=== PATIENT | female | born 1940 | race Two or more races ===

== ENCOUNTER 2017-02-27 09:02 | Outpatient (CLI) | payer OTHER ==
[~2017-02-27 09:02] MED LIST: ALEVE220 MG; ASA-EC81 MG; CALTRATE 600600 MG; CARDURA1 MG; CATAFLAM50 MG PO; NEURONTIN300 MG PO; VERAPAMIL ER100 MG
== END 2017-02-27 09:10 | disposition home or self-care (01) ==
LOC: LAB 09:02
DX: C90.01 Multiple myeloma in remission (principal); D51.0 Vitamin B12 deficiency anemia due to intrinsic factor deficiency; D51.1 Vitamin B12 deficiency anemia due to selective vitamin B12 malabsorption with proteinuria; D63.1 Anemia in chronic kidney disease; N18.3 Chronic kidney disease, stage 3 (moderate); D51.3 Other dietary vitamin B12 deficiency anemia; E08.65 Diabetes mellitus due to underlying condition with hyperglycemia; E08.21 Diabetes mellitus due to underlying condition with diabetic nephropathy; K31.83 Achlorhydria; I73.89 Other specified peripheral vascular diseases; I10 Essential (primary) hypertension; M1A.00X0 Idiopathic chronic gout, unspecified site, without tophus (tophi)

== ENCOUNTER → 2017-04-12 09:20 | Outpatient (CLI) | payer OTHER | END | disposition home or self-care (01) | LOC: LAB 09:20 | DX: C90.01 Multiple myeloma in remission (principal); N18.3 Chronic kidney disease, stage 3 (moderate); D51.0 Vitamin B12 deficiency anemia due to intrinsic factor deficiency; D51.1 Vitamin B12 deficiency anemia due to selective vitamin B12 malabsorption with proteinuria; D63.1 Anemia in chronic kidney disease; D51.3 Other dietary vitamin B12 deficiency anemia; E08.65 Diabetes mellitus due to underlying condition with hyperglycemia; E08.21 Diabetes mellitus due to underlying condition with diabetic nephropathy; I10 Essential (primary) hypertension; I73.89 Other specified peripheral vascular diseases; K31.83 Achlorhydria; M1A.00X0 Idiopathic chronic gout, unspecified site, without tophus (tophi) ==

== ENCOUNTER 2017-07-12 07:10 | Outpatient (CLI) | payer OTHER | END 2017-07-12 07:15 | disposition home or self-care (01) | LOC: LAB 07:10 | DX: C90.01 Multiple myeloma in remission (principal); D51.0 Vitamin B12 deficiency anemia due to intrinsic factor deficiency; D51.1 Vitamin B12 deficiency anemia due to selective vitamin B12 malabsorption with proteinuria; D63.1 Anemia in chronic kidney disease; N18.3 Chronic kidney disease, stage 3 (moderate); D51.3 Other dietary vitamin B12 deficiency anemia; E08.65 Diabetes mellitus due to underlying condition with hyperglycemia; E08.21 Diabetes mellitus due to underlying condition with diabetic nephropathy; K31.89 Other diseases of stomach and duodenum; I73.9 Peripheral vascular disease, unspecified; I10 Essential (primary) hypertension; M1A.00X0 Idiopathic chronic gout, unspecified site, without tophus (tophi) ==

== ENCOUNTER 2017-12-09 08:36 | Outpatient (CLI) | payer OTHER | END 2017-12-09 08:40 | disposition home or self-care (01) | LOC: SONOGRAMA 08:36 | DX: R10.84 Generalized abdominal pain (principal) ==

== ENCOUNTER 2018-02-26 11:28 | Outpatient (CLI) | payer OTHER | END 2018-02-26 11:43 | disposition home or self-care (01) | LOC: RAD 501 11:28 | DX: N20.0 Calculus of kidney (principal) ==

== ENCOUNTER 2018-02-28 07:05 | Outpatient (CLI) | payer OTHER | END 2018-02-28 07:08 | disposition home or self-care (01) | LOC: TOM 07:05 | DX: N20.1 Calculus of ureter (principal) ==

== ENCOUNTER 2018-04-21 16:04 | Emergency (ER) | payer OTHER ==
[~2018-04-21] VITALS: Ht 162.6 cm; Wt 64.4 kg
== END 2018-04-21 21:38 | disposition home or self-care (01) ==
LOC: ER 16:04
DX: S80.01XA Contusion of right knee, initial encounter (principal); M12.561 Traumatic arthropathy, right knee; W18.09XA Striking against other object with subsequent fall, initial encounter; Y93.89 Activity, other specified; Y92.018 Other place in single-family (private) house as the place of occurrence of the external cause; Y99.8 Other external cause status

== ENCOUNTER 2018-08-01 13:07 | Outpatient (CLI) | payer OTHER | END 2018-08-01 13:30 | disposition home or self-care (01) | LOC: NUCLEAR 13:07 | DX: I73.9 Peripheral vascular disease, unspecified (principal) ==

== ENCOUNTER 2019-02-09 09:36 | Emergency (ER) | payer OTHER ==
[~2019-02-09] VITALS: Ht 157.5 cm; Wt 62.6 kg
[2019-02-09] MEDS ORDERED: ZESTRIL20 MG (09:58)
[2019-02-09] MEDS ORDERED: CARVEDILOL6.25 MG (09:58)
[2019-02-09] MEDS ORDERED: PLAVIX75 MG (09:59)
[2019-02-09] MEDS ORDERED: DIALYVITE 3,001 EACH (09:59)
[2019-02-09] MEDS ORDERED: CILOSTAZOL100 MG (10:00)
[2019-02-09] MEDS ORDERED: TANDEM PLUS CA1 EACH (10:00)
[2019-02-09] MEDS ORDERED: NORFLEX100MG PO (12:40)
[2019-02-09] MEDS ORDERED: ADVIL LIQUI-GE200 MG PO (12:40)
== END 2019-02-09 12:46 | disposition home or self-care (01) ==
LOC: ER 09:36
DX: M54.2 Cervicalgia (principal); M62.838 Other muscle spasm

== ENCOUNTER → 2019-02-23 09:06 | Outpatient (CLI) | payer OTHER ==
[~2019-02-23 09:06] MED LIST changes: +ADVIL LIQUI-GE200 MG PO; +CARVEDILOL6.25 MG; +CILOSTAZOL100 MG; +DIALYVITE 3,001 EACH; +NORFLEX100MG PO; +PLAVIX75 MG; +TANDEM PLUS CA1 EACH; +ZESTRIL20 MG
== END | disposition home or self-care (01) ==
LOC: LAB 09:06
DX: C90.01 Multiple myeloma in remission (principal); D50.8 Other iron deficiency anemias; D51.1 Vitamin B12 deficiency anemia due to selective vitamin B12 malabsorption with proteinuria; D63.1 Anemia in chronic kidney disease; N18.3 Chronic kidney disease, stage 3 (moderate); D51.3 Other dietary vitamin B12 deficiency anemia; E08.65 Diabetes mellitus due to underlying condition with hyperglycemia; E08.21 Diabetes mellitus due to underlying condition with diabetic nephropathy; K31.83 Achlorhydria; M75.101 Unspecified rotator cuff tear or rupture of right shoulder, not specified as traumatic

== ENCOUNTER 2019-03-05 08:44 | Outpatient (CLI) | payer OTHER | END 2019-03-05 08:49 | disposition home or self-care (01) | LOC: LAB 08:44 | DX: Z12.11 Encounter for screening for malignant neoplasm of colon (principal); D64.89 Other specified anemias ==

== ENCOUNTER 2019-03-05 10:50 | Outpatient (CLI) | payer OTHER | END 2019-03-05 10:56 | disposition home or self-care (01) | LOC: SONOGRAMA 10:50 | DX: C90.01 Multiple myeloma in remission (principal); D51.0 Vitamin B12 deficiency anemia due to intrinsic factor deficiency; D51.1 Vitamin B12 deficiency anemia due to selective vitamin B12 malabsorption with proteinuria; D63.1 Anemia in chronic kidney disease; N18.3 Chronic kidney disease, stage 3 (moderate); D51.3 Other dietary vitamin B12 deficiency anemia; E08.65 Diabetes mellitus due to underlying condition with hyperglycemia; E08.21 Diabetes mellitus due to underlying condition with diabetic nephropathy; K31.83 Achlorhydria; I73.9 Peripheral vascular disease, unspecified; I10 Essential (primary) hypertension; M75.101 Unspecified rotator cuff tear or rupture of right shoulder, not specified as traumatic ==

== ENCOUNTER 2019-03-15 13:18 | Emergency (ER) | payer OTHER ==
[~2019-03-15] VITALS: Ht 162.6 cm; Wt 59.0 kg
[2019-03-15] MEDS ORDERED: REVLIMID10 MG PO (13:59)
== END 2019-03-15 16:10 | disposition home or self-care (01) ==
LOC: ER 13:18
DX: R55 Syncope and collapse (principal); D64.9 Anemia, unspecified

== ENCOUNTER 2019-06-03 10:28 | Outpatient (CLI) | payer OTHER ==
[~2019-06-03 10:28] MED LIST changes: +REVLIMID10 MG PO
== END 2019-06-03 10:44 | disposition home or self-care (01) ==
LOC: TOM 10:28
DX: C90.01 Multiple myeloma in remission (principal); D51.0 Vitamin B12 deficiency anemia due to intrinsic factor deficiency; D51.1 Vitamin B12 deficiency anemia due to selective vitamin B12 malabsorption with proteinuria; D63.1 Anemia in chronic kidney disease; N18.3 Chronic kidney disease, stage 3 (moderate); D51.3 Other dietary vitamin B12 deficiency anemia; E08.65 Diabetes mellitus due to underlying condition with hyperglycemia; E08.21 Diabetes mellitus due to underlying condition with diabetic nephropathy; K31.83 Achlorhydria; I73.89 Other specified peripheral vascular diseases; M75.101 Unspecified rotator cuff tear or rupture of right shoulder, not specified as traumatic

== ENCOUNTER 2019-07-12 19:15 | Emergency (ER) | payer OTHER ==
[~2019-07-12] VITALS: Ht 165.1 cm; Wt 68.0 kg
== END 2019-07-13 13:23 | disposition home or self-care (01) ==
LOC: ER 19:15
DX: R55 Syncope and collapse (principal)

== ENCOUNTER 2020-06-02 07:15 | Outpatient (CLI) | payer OTHER | END 2020-06-02 07:17 | disposition home or self-care (01) | LOC: NUCLEAR 07:15 | PROVIDERS: ATTEND General Practice | DX: R60.0 Localized edema (principal) ==

== ENCOUNTER 2020-06-03 13:34 | Outpatient (CLI) | payer OTHER | END 2020-06-03 13:37 | disposition home or self-care (01) | LOC: NUCLEAR 13:34 | PROVIDERS: ATTEND General Practice | DX: R22.43 Localized swelling, mass and lump, lower limb, bilateral (principal); I73.9 Peripheral vascular disease, unspecified ==

== ENCOUNTER → 2020-11-02 | Outpatient (CLI) | payer OTHER | END | disposition home or self-care (01) | LOC: LAB 09:48 | PROVIDERS: ATTEND Internal Medicine Hematology & Oncology | DX: D50.8 Other iron deficiency anemias (principal); R79.89 Other specified abnormal findings of blood chemistry; I10 Essential (primary) hypertension; R74.02 Elevation of levels of lactic acid dehydrogenase [LDH]; K76.89 Other specified diseases of liver; D51.8 Other vitamin B12 deficiency anemias; D47.2 Monoclonal gammopathy; C90.00 Multiple myeloma not having achieved remission; D51.0 Vitamin B12 deficiency anemia due to intrinsic factor deficiency; D51.1 Vitamin B12 deficiency anemia due to selective vitamin B12 malabsorption with proteinuria; D63.1 Anemia in chronic kidney disease; D51.3 Other dietary vitamin B12 deficiency anemia; I67.89 Other cerebrovascular disease; E08.65 Diabetes mellitus due to underlying condition with hyperglycemia; E08.21 Diabetes mellitus due to underlying condition with diabetic nephropathy; K31.83 Achlorhydria; I73.89 Other specified peripheral vascular diseases; M75.101 Unspecified rotator cuff tear or rupture of right shoulder, not specified as traumatic; E78.2 Mixed hyperlipidemia; E03.8 Other specified hypothyroidism; D64.89 Other specified anemias ==

== ENCOUNTER 2021-01-08 11:24 | Outpatient (CLI) | payer OTHER | END 2021-01-08 15:00 | disposition home or self-care (01) | LOC: LAB 11:24 | PROVIDERS: ATTEND Internal Medicine Hematology & Oncology | DX: D50.8 Other iron deficiency anemias (principal); R79.89 Other specified abnormal findings of blood chemistry; I10 Essential (primary) hypertension; R74.02 Elevation of levels of lactic acid dehydrogenase [LDH]; K76.89 Other specified diseases of liver; D47.2 Monoclonal gammopathy; C90.00 Multiple myeloma not having achieved remission; D51.0 Vitamin B12 deficiency anemia due to intrinsic factor deficiency; D51.1 Vitamin B12 deficiency anemia due to selective vitamin B12 malabsorption with proteinuria; D63.1 Anemia in chronic kidney disease; D51.3 Other dietary vitamin B12 deficiency anemia; I67.89 Other cerebrovascular disease; E08.65 Diabetes mellitus due to underlying condition with hyperglycemia; E08.21 Diabetes mellitus due to underlying condition with diabetic nephropathy; K31.83 Achlorhydria; I73.89 Other specified peripheral vascular diseases; M75.101 Unspecified rotator cuff tear or rupture of right shoulder, not specified as traumatic ==

== ENCOUNTER 2022-09-26 07:22 | Outpatient (CLI) | payer OTHER | END 2022-09-26 07:23 | disposition home or self-care (01) | LOC: LAB 07:22 | PROVIDERS: ATTEND Internal Medicine Hematology & Oncology | DX: C90.00 Multiple myeloma not having achieved remission (principal); D51.0 Vitamin B12 deficiency anemia due to intrinsic factor deficiency; D51.1 Vitamin B12 deficiency anemia due to selective vitamin B12 malabsorption with proteinuria; E08.21 Diabetes mellitus due to underlying condition with diabetic nephropathy; D63.1 Anemia in chronic kidney disease; N18.30 Chronic kidney disease, stage 3 unspecified; D51.3 Other dietary vitamin B12 deficiency anemia; I67.9 Cerebrovascular disease, unspecified; E08.65 Diabetes mellitus due to underlying condition with hyperglycemia; K31.83 Achlorhydria; I73.9 Peripheral vascular disease, unspecified; M75.101 Unspecified rotator cuff tear or rupture of right shoulder, not specified as traumatic; M91.0 Juvenile osteochondrosis of pelvis; D50.8 Other iron deficiency anemias; R79.9 Abnormal finding of blood chemistry, unspecified; R74.02 Elevation of levels of lactic acid dehydrogenase [LDH]; K76.89 Other specified diseases of liver; D51.8 Other vitamin B12 deficiency anemias; Z91.013 Allergy to seafood ==

== ENCOUNTER 2023-01-14 09:09 | Outpatient (CLI) | payer OTHER ==
[2023-01-14 10:12] LABS: HEMATOCRIT 32.4 % (36.0-45.00); HEMOGLOBIN 10.9 g/dL (12.0-15.00); MEAN CELL VOLUME 95.2 fL (80.00-100.00); MEAN CORPUSCULAR HGB CONC 33.6 g/dl (32.0-36.0); PLATELET COUNT 339 K/uL (150-450); RED CELL DISTRIBUTION WIDTH 14.8 % (11.5-14.5)
[2023-01-14 11:00] LABS: ALBUMIN 3.4 gm/dL (3.4-5.0); BILIRUBIN TOTAL 0.42 mg/dL (0.3-1.2); CALCIUM 8.9 mg/dL (8.5-10.1); CREATININE SERUM 0.73 mg/dL (0.55-1.02); GFR 76.32; GLOBULINA 3.6 G/DL (2.4-3.5); POTASSIUM 4.48 mEq/L (3.5-5.1)
== END 2023-01-14 09:14 | disposition home or self-care (01) ==
LOC: LAB 09:09
PROVIDERS: ATTEND Internal Medicine Hematology & Oncology
DX: D50.8 Other iron deficiency anemias (principal); R79.9 Abnormal finding of blood chemistry, unspecified; K74.02 Hepatic fibrosis, advanced fibrosis; K76.89 Other specified diseases of liver; D47.2 Monoclonal gammopathy; C90.00 Multiple myeloma not having achieved remission; D51.0 Vitamin B12 deficiency anemia due to intrinsic factor deficiency; D51.1 Vitamin B12 deficiency anemia due to selective vitamin B12 malabsorption with proteinuria; D63.1 Anemia in chronic kidney disease; N18.30 Chronic kidney disease, stage 3 unspecified; D51.3 Other dietary vitamin B12 deficiency anemia; I67.9 Cerebrovascular disease, unspecified; E08.65 Diabetes mellitus due to underlying condition with hyperglycemia; K31.83 Achlorhydria; I73.9 Peripheral vascular disease, unspecified

== ENCOUNTER 2023-05-20 07:40 | Outpatient (CLI) | payer OTHER ==
[2023-05-20 09:52] LABS: HEMATOCRIT 35.1 % (36.0-45.00); HEMOGLOBIN 11.9 g/dL (12.0-15.00); MEAN CORPUSCULAR HEMOGLOBIN 32.1 pg (27.00-32.0); MEAN CORPUSCULAR HGB CONC 33.8 g/dl (32.0-36.0); PLATELET COUNT 343 K/uL (150-450); RED CELL DISTRIBUTION WIDTH 14.8 % (11.5-14.5)
[2023-05-20 10:38] LABS: % SATURACION 15.5 % (15-50); ALBUMIN 3.7 gm/dL (3.4-5.0); BILIRUBIN TOTAL 0.4 mg/dL (0.3-1.2); CALCIUM 9.7 mg/dL (8.5-10.1); CREATININE SERUM 0.89 mg/dL (0.55-1.02); FERRITIN 39.9 NG/ML (8-252); GFR 60.57; GLOBULINA 3.5 G/DL (2.4-3.5); POTASSIUM 5.55 mEq/L (3.5-5.1); TOTAL PROTEIN 7.2 gm/dL (6.4-8.2)
[2023-05-21 12:18] LABS: FOLIC ACID > 20.00 ng/ml (4.78-20); VITAMIN D3 25 HYDROXY 28.19 ng/ml (30-120)
[2023-05-22 11:30] LABS: MANUAL PLATELET COUNT 538
[2023-05-22 11:35] LABS: PLATELET ESTIMATE INCREASED (NORMAL)
== END 2023-05-20 07:41 | disposition home or self-care (01) ==
LOC: LAB 07:40
PROVIDERS: ATTEND Internal Medicine Hematology & Oncology
DX: C90.00 Multiple myeloma not having achieved remission (principal); D51.0 Vitamin B12 deficiency anemia due to intrinsic factor deficiency; D51.1 Vitamin B12 deficiency anemia due to selective vitamin B12 malabsorption with proteinuria; D63.1 Anemia in chronic kidney disease; N18.30 Chronic kidney disease, stage 3 unspecified; D51.3 Other dietary vitamin B12 deficiency anemia; I67.9 Cerebrovascular disease, unspecified; E08.65 Diabetes mellitus due to underlying condition with hyperglycemia; E08.21 Diabetes mellitus due to underlying condition with diabetic nephropathy; K31.83 Achlorhydria; I73.9 Peripheral vascular disease, unspecified; I10 Essential (primary) hypertension; M75.101 Unspecified rotator cuff tear or rupture of right shoulder, not specified as traumatic; R79.9 Abnormal finding of blood chemistry, unspecified; K76.89 Other specified diseases of liver; D47.2 Monoclonal gammopathy; E55.9 Vitamin D deficiency, unspecified

== ENCOUNTER 2024-01-24 10:58 | Emergency (ER) | payer OTHER ==
[~2024-01-24] VITALS: Ht 162.6 cm; Wt 66.7 kg
[~2024-01-24 10:58] MED LIST changes: +ASPIR-TRIN325 MG; +COREG CR10 MG; +CYANOCOBAL1000 MCG/1; +DEXAMETHASONE4 MG; +FAMOTIDINE40 MG; +FOLIC ACID1 MG; +INTEGRA CAPSUL1 EACH; +INTEGRA PLUS C1 EACH; +LISINOPRIL-HCT1 EACH; +LOSARTAN POTASS50 MG; +LOSARTAN-HCTZ1 EAC1; +NABUMETONE750 MG PO; +NEURONTIN300 MG; +NORVASC2.5 M1; +PROBIOTIC1 EAC2; +REVLIMID10 MG; +ZESTRIL5 MG PO
[2024-01-24 11:12] VITALS: BP 156/83; O2SAT 97
[2024-01-24] MEDS ORDERED: MECLIZINE HCL 25 MG TABLET PO STA (11:38)
[2024-01-24] MEDS ORDERED: DEXAMETHASONE SODIUM PHOSPHATE 4 MG/ML VIAL IM STA (11:39)
[2024-01-24] MEDS ORDERED: ONDANSETRON HCL 2 MG/ML VIAL IV ONE (12:15)
[2024-01-24 12:28] LABS: HEMATOCRIT 29.4 % (36.0-45.00); MEAN CELL VOLUME 94.6 fL (80.00-100.00); MEAN CORPUSCULAR HGB CONC 33.2 g/dl (32.0-36.0); PLATELET COUNT 321 K/uL (150-450); RED CELL DISTRIBUTION WIDTH 14.3 % (11.5-14.5)
[2024-01-24 12:35] LABS: HEMOGLOBIN 9.7 g/dL (12.0-15.00); MEAN CORPUSCULAR HEMOGLOBIN 31.2 pg (27.00-32.0)
[2024-01-24 12:56] LABS: CALCIUM 8.7 mg/dL (8.5-10.1); CREATININE SERUM 0.76 mg/dL (0.55-1.02); GFR 72.68; POTASSIUM 3.78 mEq/L (3.5-5.1)
== END 2024-01-24 19:51 | disposition home or self-care (01) ==
LOC: ER 10:58
PROVIDERS: General Practice
DX: R42 Dizziness and giddiness (principal); R53.81 Other malaise; Z91.013 Allergy to seafood; I10 Essential (primary) hypertension; E11.9 Type 2 diabetes mellitus without complications
CPT/HCPCS: 36415; 70450; 71045; 93005; 96365; 96372; 99284; J1100; J2405